=== PATIENT | female | born 1960 | race Caucasian/White ===

== ENCOUNTER → 2017-02-13 | Outpatient (CLI) | payer BC ==
[~2017-02-13] MED LIST: ALEVE220 M2 PO; CIPROFLOXACIN500 M1 PO; DICYCLOMINE HCL20 MG PO; METRONIDAZOLE500 MG PO; TRAMADOL HCL50 MG PO; ZOFRAN ODT4 MG PO; ZYRTEC10 M3 PO
== END | disposition home or self-care (01) ==
LOC: NUC 09:21
DX: R94.5 Abnormal results of liver function studies (principal); R93.3 Abnormal findings on diagnostic imaging of other parts of digestive tract
CPT/HCPCS: 78227; A9537; J2805

== ENCOUNTER → 2017-04-09 | Outpatient (CLI) | payer BC | END | disposition home or self-care (01) | LOC: CDC 14:10 | DX: K81.9 Cholecystitis, unspecified (principal) | CPT/HCPCS: 93000 ==

== ENCOUNTER 2017-04-30 06:25 | Day surgery (SDC) | payer BC ==
[~2017-04-30] VITALS: Ht 167.6 cm; Wt 61.2 kg
[~2017-04-30 06:25] MED LIST changes: +DAILY MULTIPLE1 EACH PO; +PANTOPRAZOLE SO40 MG PO; +PRAVACHOL40 MG PO
[2017-04-30 06:56] VITALS: BP 145/74
[2017-04-30] MEDS ORDERED: COLACE100 MG PO (09:54)
[2017-04-30] MEDS ORDERED: TRAMADOL HCL50 MG PO (09:54)
[2017-04-30] MEDS ORDERED: ZOFRAN8 MG PO (09:54)
[2017-04-30 11:20] VITALS: BP 153/70
[2017-04-30 12:20] VITALS: BP 146/67
[2017-04-30 13:34] VITALS: BP 146/68
== END 2017-04-30 13:52 | disposition home or self-care (01) ==
LOC: SDC 06:25
PROC: 0FT44ZZ Resection of Gallbladder, Percutaneous Endoscopic Approach (ICD-10-PCS; principal; 2017-04-30)
DX: K80.10 Calculus of gallbladder with chronic cholecystitis without obstruction (principal); K66.0 Peritoneal adhesions (postprocedural) (postinfection); K44.9 Diaphragmatic hernia without obstruction or gangrene; J45.909 Unspecified asthma, uncomplicated; K57.32 Diverticulitis of large intestine without perforation or abscess without bleeding; E78.5 Hyperlipidemia, unspecified; R73.03 Prediabetes; Z87.891 Personal history of nicotine dependence; Z82.49 Family history of ischemic heart disease and other diseases of the circulatory system; Z82.3 Family history of stroke; Z84.1 Family history of disorders of kidney and ureter; Z81.8 Family history of other mental and behavioral disorders
CPT/HCPCS: J0131; J0330; J1100; J1170; J2175; J2250; J2405; J2550; J2710; J2765; J3010; Q0175